=== PATIENT | female | born 1975 | race Caucasian/White ===

== ENCOUNTER 2019-06-19 10:20 | Emergency (ER) | payer MEDICAID, OTHER ==
[~2019-06-19] VITALS: Ht 147.3 cm; Wt 52.6 kg
--- NOTE | 2019-06-19 10:55 | NUR ---
Patient discharged to home in stable conditon. Written and verbal after care instructions given to patient. Patient verbalizes understanding of instructions.
== END 2019-06-19 10:56 | disposition home or self-care (01) ==
LOC: ER 10:20
DX: L03.011 Cellulitis of right finger (principal); Z90.49 Acquired absence of other specified parts of digestive tract
CPT/HCPCS: A4663

== ENCOUNTER 2019-06-19 22:01 | Emergency (ER) | payer OTHER ==
[~2019-06-19] VITALS: Ht 147.3 cm; Wt 53.1 kg
--- NOTE | 2019-06-19 22:51 | NUR ---
Lying gurleida c/o pain and edema to right middle finger tip.
--- NOTE | 2019-06-19 23:44 | NUR ---
I and D setup tray, betadine Lidocaine 1% 7 1/2 sterile gloves
[2019-06-19] MEDS ORDERED: LIDOCAINE HCL 1% 20 ML VIAL TP ONE (23:45)
[2019-06-19] MEDS ORDERED: SULFAMETH/TRIMETH 800/160 MG TABLET PO ONE (23:45)
[2019-06-19] MEDS ORDERED: NEOMY/BACITRA/POLYMYXIN B OINT UD PACKET TP ONE (23:45)
--- NOTE | 2019-06-20 00:05 | NUR ---
Dressed middle finger and applied triple a/b ointment to affected area.
[2019-06-20] MEDS ORDERED: SULFAMETH/TRIMETH 800/160 MG TABLET ONE (00:07)
--- NOTE | 2019-06-20 00:17 | NUR ---
Patient discharged to home in stable conditon. Written and verbal after care instructions given. Patient verbalizes understanding of instructions. Pt ambulated out of ER with steady gait, no acute signs of distress, VSS, all belongings taken.
[2019-06-20 00:18] VITALS: BP 126/93
== END 2019-06-20 00:19 | disposition home or self-care (01) ==
LOC: ER 22:02
DX: L03.011 Cellulitis of right finger (principal); Z90.49 Acquired absence of other specified parts of digestive tract
CPT/HCPCS: A4663

== ENCOUNTER 2019-06-21 21:03 | Emergency (ER) | payer OTHER ==
[~2019-06-21] VITALS: Ht 147.3 cm; Wt 53.1 kg
[2019-06-21] MEDS ORDERED: NEOMY/BACITRA/POLYMYXIN B OINT UD PACKET TP ONE ×2 (21:42→21:45)
--- NOTE | 2019-06-21 21:42 | NUR ---
Patient discharged to home in stable conditon. Written and verbal after care instructions given. Patient verbalizes understanding of instructions.
[2019-06-21 21:43] VITALS: BP 114/71
== END 2019-06-21 21:43 | disposition home or self-care (01) ==
LOC: ER 21:03
DX: L03.011 Cellulitis of right finger (principal); Z90.49 Acquired absence of other specified parts of digestive tract
CPT/HCPCS: A4663